=== PATIENT | female | born 2000 | race Hispanic/Latino ===

== ENCOUNTER 2019-06-22 15:45 | Emergency (ER) | payer OTHER ==
[2019-06-22] MEDS ORDERED: LIDOCAINE 5% TOPICAL PATCH TP ONE (16:18)
== END 2019-06-22 17:05 | disposition home or self-care (01) ==
LOC: EDH 15:45
DX: S29.019A Strain of muscle and tendon of unspecified wall of thorax, initial encounter (principal); V49.40XA Driver injured in collision with unspecified motor vehicles in traffic accident, initial encounter; Y93.89 Activity, other specified; Y92.89 Other specified places as the place of occurrence of the external cause; Y99.8 Other external cause status

== ENCOUNTER 2021-09-29 00:09 | Observation (INO) | payer OTHER ==
[2021-09-29] VITALS (22 sets, daily range): BP systolic 127–153; BP diastolic 65–84
[~2021-09-29] VITALS: Ht 172.7 cm; Wt 108.9 kg
[2021-09-29 00:58] LABS: BASOPHILS % (AUTO) 0.1 % (0.0-5.0); HEMATOCRIT 42.5 % (36-48); LYMPHOCYTES % (AUTO) 3.9 % (21.0-51.0); MEAN CORPUSCULAR HEMOGLOBIN 31.4 pg (27.0-33.0); MEAN CORPUSCULAR HGB CONC 35.1 g/dL (32.0-36.0); MEAN CORPUSCULAR VOLUME 89.7 fL (79-99); NEUTROPHILS % (AUTO) 93.7 % (40.0-77.0); PLATELET COUNT (AUTO) 314 K/uL (130-400); RED BLOOD CELL COUNT(AUTO) 4.74 MIL/uL (4.00-5.50); RED CELL DISTRIBUTION WIDTH 11.9 % (11.0-15.5); WHITE BLOOD COUNT (AUTO) 20.2 K/uL (4.8-10.8)
[2021-09-29 00:59] LABS: BILIRUBIN,URINE Negative (NEGATIVE); COLOR,URINE Yellow (YELLOW); GLUCOSE, URINE (UA) Negative (NEGATIVE); KETONES,URINE Trace mg/dL (NEGATIVE); LEUKOCYTE ESTERASE ,URINE Trace (NEGATIVE); NITRATE,URINE Negative (NEGATIVE); OCCULT BLOOD,URINE Negative (NEGATIVE); PH,URINE 6.5 (5.0-8.0); PROTEIN,URINE Trace mg/dL (NEGATIVE)
[2021-09-29 01:00] LABS: APPEARANCE,URINE CLEAR (CLEAR)
[2021-09-29] MEDS ORDERED: MORPHINE 4 MG SYG IV ONE (01:00)
[2021-09-29] MEDS ORDERED: ONDANSETRON 4MG INJ IVP ONE (01:00)
[2021-09-29 01:01] LABS: HCG,QUAL RESULT NEGATIVE (NEGATIVE)
[2021-09-29 01:08] LABS: BACTERIA,URINE Few /HPF (None Seen); RBC,URINE 0-1 /HPF (0-1)
[2021-09-29 01:09] LABS: MUCUS,URINE Few LPF (None Seen)
[2021-09-29 01:57] LABS: BILIRUBIN,TOTAL 0.9 mg/dL (0.2-1.0); CREATININE 0.7 mg/dL (0.5-1.5); TOTAL PROTEIN, SERUM 8.3 g/dL (6.0-8.3)
[2021-09-29] MEDS ORDERED: KETOROLAC 30MG VIAL (30MG/ML) ONE (02:41)
[2021-09-29] MEDS ORDERED: KETOROLAC 30MG VIAL (30MG/ML) IV ONE (03:00)
[2021-09-29] MEDS ORDERED: IOHEXOL 350 MG/ML 100ML INFUS..BTL IV ONE (03:01)
[2021-09-29] MEDS ORDERED: ZOSYN 3.375GM+NS 50ML 50 ML ONE (05:48)
[2021-09-29] MEDS: DEXTROSE 5 %-0.45 % NACL 1,000 ML IV SCH ×2 (06:18→12:53)
[2021-09-29] MEDS ORDERED: LIDOCAINE PF 100MG/5ML (2%) SYRINGE 5ML ONE (06:19)
[2021-09-29] MEDS ORDERED: DEXAMETHASONE SOD PHOSPHATE 10MG/ML 1ML VIAL ONE (06:19)
[2021-09-29] MEDS ORDERED: SUCCINYLCHOLINE CHLORIDE 20 MG/ML 10 ML VIAL ONE (06:19)
[2021-09-29] MEDS: ZOSYN 3.375GM +NS 50ML IV SCH ×2 (06:20→06:27)
[2021-09-29] MEDS ORDERED: ROCURONIUM 10MG/1ML SYR 10 MG/ML ML ONE (06:22)
[2021-09-29] MEDS ORDERED: GLYCOPYRROLATE 1 MG/5 ML SYRINGE ONE (06:22)
[2021-09-29] MEDS ORDERED: MIDAZOLAM HCL 1 MG/ML 2ML VIAL ONE (06:22)
[2021-09-29] MEDS ORDERED: NEOSTIGMINE 5MG/5ML SYR IV ONE (06:22)
[2021-09-29] MEDS ORDERED: ONDANSETRON 4MG INJ ONE (06:22)
[2021-09-29] MEDS ORDERED: PROPOFOL 10 MG/ML 20ML VIAL IV ONE (06:22)
[2021-09-29] MEDS ORDERED: FENTANYL CITRATE PF 50 MCG/1 ML 2ML VIAL ONE ×3 (06:23→07:58)
[2021-09-29] MEDS ORDERED: [UNRECOGNIZED DRUG - MIXTURE] IVPB SCH ×4 (06:30)
[2021-09-29] MEDS ORDERED: BUPIVACAINE/PF 0.5% 10ML VIAL ONE (06:40)
[2021-09-29] MEDS ORDERED: HYDROCODONE/ACETAMINOPHEN 5/325 MG TAB PO PRN (07:00)
[2021-09-29] MEDS ORDERED: ACETAMINOPHEN 325 MG TAB PO PRN (07:00)
[2021-09-29] MEDS ORDERED: ONDANSETRON 4MG INJ IVP PRN (07:00)
[2021-09-29] MEDS ORDERED: DEXTROSE 5%-WATER 1,000 ML IV SCH (07:00)
[2021-09-29] MEDS ORDERED: MORPHINE 2 MG SYG IV PRN (07:00)
[2021-09-29] MEDS ORDERED: MEPERIDINE-PF 25 MG/ML SYG ONE ×2 (07:29→08:26)
[2021-09-29] MEDS ORDERED: FAMOTIDINE 20MG VIAL IV SCH (09:00)
[2021-09-29] MEDS ORDERED: ZOSYN 3.375GM+NS 50ML 50 ML IV SCH (13:00)
[2021-10-01 08:13] LABS: CHLAMYDIA DNA N.A.AMPLIFY Negative (Negative)
== END 2021-09-29 18:50 | disposition home or self-care (01) ==
LOC: EDH 00:09 → EDHIP 00:10 → UNDOADMOB 05:36 → 3AH 09:15
PROVIDERS: ADMIT Specialist; ATTEND Specialist
DX: K35.80 Unspecified acute appendicitis (principal); Z20.822 Contact with and (suspected) exposure to COVID-19; R11.2 Nausea with vomiting, unspecified; E66.01 Morbid (severe) obesity due to excess calories
CPT/HCPCS: 36415; 44970; 74177; 76830; 80053; 81001; 81025; 85025; 87210; 87486; 87635; 87797; 96361; 96365; 96366; 96375; 96376; 99285; A4215; A4222; A4223; A4600; A4649 ×3; A4663; A6206; C1769 ×3; G0378 ×11; J0330; J1100; J1885; J2001; J2175 ×2; J2250; J2270; J2405 ×2; J2543 ×2; J2704; J2710; J3010 ×3; J3490 ×3; J7030; J7042; Q9967